=== PATIENT | female | born 1985 | race Caucasian/White ===

== ENCOUNTER → 2016-08-26 | Outpatient (CLI) | payer OTHER | LOC: CIMAGING 15:00 | PROVIDERS: ATTEND Family Medicine | DX: Z87.42 Personal history of other diseases of the female genital tract (principal) | CPT/HCPCS: 76856-PO ==

== ENCOUNTER 2016-11-03 21:47 | Emergency (ER) | payer OTHER ==
--- NOTE | 2016-11-03 22:14 | EDPHY ---
H & P Stated Complaint: pt playing baseball, slid into a base and twisted L ankle - pain/swelling HPI/ROS: HPI CHIEF COMPLAINT: Left ankle injury HISTORY OF PRESENT ILLNESS: This patient 31-year-old female, denies any significant medical history presents to the emergency room with left ankle pain. She was playing softball she slid into a base. Instead of hitting the base with her left foot ankle she hit another player's foot. She now has swelling to her left ankle bilateral malleolus and pain. Unable to bear weight. Pain is 6/10 throbbing. Past Medical History: No significant medical history Past Surgical History: No significant surgical Social History: Denies daily use drugs alcohol tobacco products. Family History: Noncontributory ROS REVIEW OF SYSTEMS: A comprehensive 10 point review of systems is otherwise negative aside from elements mentioned in the history of present illness. Exam Constitutional appears well nontoxic triage nursing summary reviewed, vital signs reviewed, awake/alert. Eyes normal conjunctivae and sclera, EOMI, PERRLA. HENT normal inspection, atraumatic, moist mucus membranes, no epistaxis, neck supple/ no meningismus, no raccoon eyes. Respiratory clear to auscultation bilaterally, normal breath sounds, no respiratory distress, no wheezing. Cardiovascular rate normal, regular rhythm, no murmur, no edema, distal pulses normal. Gastrointestinal soft, non-tender, no rebound, no guarding, normal bowel sounds, no distension, no pulsatile mass. Genitourinary no CVA tenderness. Musculoskeletal left lower extremity: Neurovascular intact. Good DP pulse. Good cap refill, warm extremity. Limited range of motion of the left foot due to ankle pain and ankle swelling. Bilateral malleolus swelling bilateral malleolar tenderness of the left ankle. No open fracture. Abrasion present. no midline vertebral tenderness, full range of motion, no calf swelling, no tenderness of extremities, no meningismus, good pulses, neurovascularly intact. Skin pink, warm, & dry, no rash, skin atraumatic. Neurologic awake, alert and oriented x 3, AAOx3, moves all 4 extremities equally, motor intact, sensory intact, CN II-XII intact, normal cerebellar, normal vision, normal speech. Psychiatric normal mood/affect. Heme/Lymph/Immune no lymphadenopathy. Differential Diagnosis: Includes but is not limited to in a particular order, ankle sprain high-grade, ankle fracture, bilateral malleolar fracture, try Mao fracture, dislocation Medical Decision Making: Plan for this patient x-ray left ankle. Ibuprofen 800 mg at her request. Client further pain medicine. Ice pack. Crutches, most likely splint with short-leg posterior and stirrup. Re-evaluation: ED x-ray left ankle: This shows a BI-MAL ankle fracture. Distal fibular distal tibia. There is joint space widening. I did consult Orthopedics at this time 10:35 p.m., spoke with Dr. Ng who recommends that I do push told her to closed joint mortise, is not an open fracture. However she is joint space widening. She is neurovascular intact. She will need to be splinted and follow up with Orthopedics either Dr. Brar or Dr. Ann for podiatry. This patient will need conscious sedation. She has verbally consented for conscious sedation. Procedure: Procedural sedation. Indication: Left ankle fracture with widening of the joint mortise a time-out was taken. No allergies. Except for sulfa. No previous neck surgery. A pre-sedation evaluation was completed on the patient just prior to the procedure. Patient is an appropriate candidate for procedural sedation with ASA class 1 E. The risks of the sedation were discussed including but not limited to dysrhythmia, need for airway intervention or general anesthesia, disability, ; and verbal consent obtained. A timeout was observed and patient's identity confirmed. The patient was sedated with Propofol. The patient was monitored with continuous pulse oximetry, capnography, and youth nutritional monitor. There were no complications and no significant hypoxemia. I remained at the bedside for the sedation. The total time I spent in the procedural sedation was 30 MINUTES . ED x-ray repeat x-ray post reduction left ankle: In splint. Good approximation of the ankle mortise now much improved. Post splint placement I did re-evaluate her she is neurovascularly intact. She ambulated well to the bathroom with crutches. She is not vomiting. She p.o. challenge well. Splint is appropriate. Foot ankle and left lower extremity is neurovascular intact. Went over return precautions understands return emergency room if there is any worsening symptoms includes numbness or tingling, discoloration of toes, severe pain. Compartment syndrome. Source: Patient - Medical/Surgical History Hx Asthma: No Hx Chronic Respiratory Disease: No Hx Diabetes: No Hx Cardiac Disease: No Hx Renal Disease: No Hx Cirrhosis: No Hx Alcoholism: No Hx HIV/AIDS: No Hx Splenectomy or Spleen Trauma: No Other PMH: surg L 2nd finger - Social History Smoking Status: Never smoked Constitutional: Initial Vital Signs Temperature (C) 37.5 C 11/03/16 21:58 Heart Rate 112 H 11/03/16 21:58 Respiratory Rate 20 11/03/16 21:58 Blood Pressure 113/84 H 11/03/16 21:58 O2 Sat (%) 96 11/03/16 21:58 O2 Delivery Mode [Post Nasal Cannula Procedure 2nd] O2 Delivery Mode [Post Nasal Cannula Procedure 1st] O2 Delivery Mode [Procedural Non-Rebreather Mask 1st] O2 (L/minute) [Post Procedure 2 2nd] O2 (L/minute) [Post Procedure 6 1st] O2 (L/minute) [Procedural 1st] 100 Allergies/Adverse Reactions: Sulfa (Sulfonamide Antibiotics) [Sulfa(Sulfonamide Antibiotics)] Allergy ( Verified 11/03/16 22:01) Home Medications: Medication Instructions Recorded Bcp 04/01/12 Medical Decision Making - Diagnostics Imaging Results: Imaging Impressions Ankle X-Ray 11/03/16 22:17 Impression: Left ankle bimalleolar fracture consistent with an eversion injury and widening of ankle mortise. - Data Points Medications Given: Discontinued Medications Ibuprofen (Motrin) 800 mg PO EDNOW ONE Stop: 11/03/16 22:18 Last Admin: 11/03/16 22:23 Dose: 800 mg Propofol (Diprivan) 100 mg IVP EDNOW ONE Stop: 11/03/16 22:41 Last Admin: 11/03/16 23:50 Dose: 120 mg Departure - Departure Disposition: Home, Routine, Self-Care Clinical Impression: Ankle fracture Qualifiers: Encounter type: initial encounter Fracture type: closed Laterality: left Qualified Code(s): S82.892A - Other fracture of left lower leg, initial encounter for closed fracture Condition: Good Instructions: Ankle Fracture (ED), Ankle Sprain (ED), Arthralgia (ED) Additional Instructions: 1. Use your crutches to help ambulate. Keep the leg elevated. 2. I recommend taking ibuprofen for mild pain as an anti-inflammatory. 3. Take Sharples if you have severe pain. 4. Return emergency room if you have severe pain, severe swelling, numbness or tingling or discoloration of her toes. 5. Follow up with Orthopedics. Referrals: NONE *PRIMARY CARE P,. [Primary Care Provider] - As per Instructions Thu Brar DPM [Doctor of Podiatric Medicine] - As per Instructions Ryland Ann DPM [Doctor of Podiatric Medicine] - As per Instructions
[2016-11-03] MEDS ORDERED: IBUPROFEN 200 MG TAB PO ONE (22:17)
[2016-11-03] MEDS ORDERED: PROPOFOL 200 MG/20 ML VIAL IVP ONE (22:40)
[2016-11-03] MEDS ORDERED: NS 1,000 ML IV SCH (22:45)
[2016-11-03] MEDS ORDERED: NS 1,000 ML IV ONE (22:48)
[2016-11-04] MEDS ORDERED: OXYCODONE/APAP 5/325MG PREPACK#4 BTL TAKEHOME ONE (00:37)
[2016-11-04 00:59] VITALS: BP 122/72; PULSE 86; RESP 14; TEMP 98.4; O2SAT 98
== END 2016-11-04 00:59 | disposition home or self-care (01) ==
PROC: 2W3RX1Z Immobilization of Left Lower Leg using Splint (ICD-10-PCS; principal; 2016-11-03)
DX: S82.842A Displaced bimalleolar fracture of left lower leg, initial encounter for closed fracture (principal); W50.0XXA Accidental hit or strike by another person, initial encounter; Y93.64 Activity, baseball
CPT/HCPCS: J2704